=== PATIENT | female | born 1995 | race Caucasian/White ===

== ENCOUNTER 2017-08-11 13:45 | Emergency (ER) | payer OTHER ==
[2017-08-11] MEDS ORDERED: DIPH,PERTUSS(ACELL),TET VAC/PF 0.5 ML DISP.SYRIN IM ONE (14:08)
[2017-08-11] MEDS ORDERED: BUPIVACAINE HCL/PF 2.5 MG/ML 10ML VIAL IJ ONE (14:19)
[2017-08-11] MEDS ORDERED: BUPIVACAINE HCL/PF 5 MG/ML 10ML VIAL IV ONE (14:51)
--- NOTE | 2017-08-11 15:24 | ED Physician Documentation ---
General Adult - HISTORIAN Historian: patient - HPI Stated Complaint: laceration Chief Complaint: Laceration/Recheck/Suture Onset: days ago Further Comments: yes (22 year old female patient presents with laceration to right thumb from lid of can.) - ROS CONST: no problems EYES/ENT: none CVS/RESP: none GI/: none MS/SKIN/LYMPH: none NEURO/PSYCH: difficulty with speech. denies: headache - PAST HX Past History: other (depression) Allergies/Adverse Reactions: Allergies Allergy/AdvReac Type Severity Reaction Status Date / Time No Known Allergies Allergy Verified 08/11/17 14:04 Home Medications: Ambulatory Orders Medication Instructions Recorded Escitalopram Oxalate [Lexapro] 10 mg PO DAILY 08/11/17 Ethinyl Estradiol/Drospirenone 1 tab PO DAILY 08/11/17 [Ocella 3 mg-0.03 mg Tablet] - SOCIAL HX Smoking History: non-smoker - FAMILY HX Family History: No - VITAL SIGNS Vital Signs: Vital Signs Temp Pulse Resp BP Pulse Ox 98.2 F 74 15 112/67 98 08/11/17 15:39 08/11/17 15:39 08/11/17 15:39 08/11/17 15:39 08/11/17 15:39 - REVIEWED ASSESSMENTS Nursing Assessment Reviewed: Yes Vitals Reviewed: Yes Procedures Wound Location: other (right thumb) Wound's Depth, Shape: linear Wound Explored: clean Irrigated w/ Saline (ccs): 300 Betadine Prep?: No (chlorhexidine) Wound Repaired With: sutures Suture Size/Type: 5:0 Number of Sutures: 6 Layer Closure?: No Progress: Edges well approximated with 5.0 ethilon x 6 sutures. Dressing applied by nursing. Progress - Progress Progress: Marcaine .25% digital block to right thumb. Attempted suturing - patient c/o severe pain, additional Marcaine block .5% to right thumb. Patient tolerated well after additional marcaine. ED Results Lab/Radiology - Orders Orders: ED Orders Category Date Time Status Bupivacaine HCl/Pf [Marcaine 0.25% Vial] Med 08/11/17 14:19 Discontinued 5 mg IJ NOW ONE Bupivacaine HCl/Pf [Marcaine 0.5%] Med 08/11/17 15:40 Discontinued 5 mg IJ NOW ONE Bupivacaine HCl/Pf [Marcaine 0.5%] Med 08/11/17 14:51 Discontinued 50 mg IV .STK-MED ONE Diph,Pertuss(Acell),Tet Vac/Pf [Adacel] Med 08/11/17 14:08 Discontinued 0.5 ml IM .ONCE ONE General Adult Physical Exam - PHYSICAL EXAM GENERAL APPEARANCE: mild distress EENT: eye inspection normal, ENT inspection normal, pharynx normal, no signs of dehydration, NIK, no nystagmus, TM's nml RESPIRATORY: no resp distress, chest non-tender, breath sounds normal CVS: reg rate & rhythm, heart sounds normal, equal pulses, no murmur, no gallop , PMI nml, no JVD, no friction rub, 24 ABDOMEN: soft, no organomegaly, normal bowel sounds, no abdominal bruit, no distension SKIN: warm/dry, normal color, other (right thumb - wu aspect 2. 5 cm) EXTREMITIES: non-tender, normal range of motion, no evidence of injury, no edema , J, [employer] NEURO: oriented X3, CN's nml as tested, motor nml, sensation nml, mood/affect nml Discharge Clincal Impression: Laceration of right thumb Qualifiers: Encounter type: initial encounter Damage to nail status: without damage Foreign body presence: without foreign body Qualified Code(s): S61.011A - Laceration without foreign body of right thumb without damage to nail, initial encounter Referrals: Primary Doctor,No [Primary Care Provider] - 2 Days Additional Instructions: Keep the wound clean and dry until it has healed. You can wash or shower after 24 hours. Do not soak the wound in water and make sure it is dry afterwards (gently pat the area dry with a clean towel). Do not get into a swimming pool, hot tub, [place] or river until your stitches are removed. To remove your dressing, gently pull it off. If needed, you can dampen it with water then gently pull it off. Clean the laceration twice a day with hibiclens and rinse with water clean away any scabbed area Apply thin coat of antibiotic ointment after cleaning the wound. Cover with non-adherent bandage if able. If you have pain, take simple pain relief medication such as Tylenol or ibuprofen. If bandages or dressings get wet, they will need to be changed. Call your doctor for any signs of symptom of infection redness, drainage, pain. Have your stitches removed at your doctors office in 7-10 days. Condition: Stable Disposition: 01 HOME, SELF-CARE Decision to Admit: NO Decision Time: 15:23
[2017-08-11] MEDS ORDERED: BUPIVACAINE HCL/PF 5 MG/ML 10ML VIAL IJ ONE (15:40)
[2017-08-11 15:41] VITALS: BP 112/67
== END 2017-08-11 15:30 | disposition home or self-care (01) ==
LOC: ED 13:45
DX: S61.011A Laceration without foreign body of right thumb without damage to nail, initial encounter (principal); X58.XXXA Exposure to other specified factors, initial encounter; Y93.9 Activity, unspecified; Y99.9 Unspecified external cause status
CPT/HCPCS: 90715; J3490; 12001; 90471; 99283